=== PATIENT | female | born 1985 | race Caucasian/White ===

== ENCOUNTER → 2018-01-11 | Outpatient (CLI) | payer MEDICAID ==
--- NOTE | 2018-01-11 12:24 | Diagnostic Imaging Report ---
INDICATION: Lump in the left subcostal region. Sonographic interrogation of the area of lump in the subcostal location on the left was performed. No sonographic abnormality is seen. No solid or cystic mass is detected. IMPRESSION: No sonographic abnormality is identified. Dictated by: Dictated on workstation # [id number]
== END ==
LOC: RAD 08:42
PROVIDERS: ATTEND Surgery
DX: R22.2 Localized swelling, mass and lump, trunk (principal)
CPT/HCPCS: 76999

== ENCOUNTER 2018-01-17 00:14 | Emergency (ER) | payer OTHER, MEDICAID ==
[~2018-01-17] VITALS: Ht 165.1 cm; Wt 87.1 kg
[2018-01-17] MEDS ORDERED: LACTATED RINGERS 1,000 ML IV ONE (00:51)
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
[2018-01-17 01:35] LABS: BASOPHILS % (AUTO) 0 % (0-10); EOSINOPHILS # (AUTO) 0.1 10^3/uL (0.0-0.3); EOSINOPHILS % (AUTO) 1 % (0-10); HEMATOCRIT 30 % (35-52); HEMOGLOBIN 10.2 G/DL (11.5-16.0); LYMPHOCYTES # (AUTO) 2.6 X 10^3 (1.0-4.0); LYMPHOCYTES % (AUTO) 18 % (12-44); MEAN CORPUSCULAR HEMOGLOBIN 32 PG (25-34); MEAN CORPUSCULAR HGB CONC 34 G/DL (32-36); MEAN CORPUSCULAR VOLUME 93 FL (80-99); MEAN PLATELET VOLUME 9.5 FL (7.4-10.4); MONOCYTES # (AUTO) 1.2 X 10^3 (0.0-1.0); MONOCYTES % (AUTO) 9 % (0-12); NEUTROPHILS # (AUTO) 10.3 X 10^3 (1.8-7.8); NEUTROPHILS % (AUTO) 72 % (42-75); PLATELET COUNT 250 10^3/uL (130-400); RED BLOOD COUNT 3.24 10^6/uL (4.35-5.85); RED CELL DISTRIBUTION WIDTH 13.9 % (10.0-14.5); WHITE BLOOD COUNT 14.3 10^3/uL (4.3-11.0)
[2018-01-17 01:45] LABS: BILIRUBIN,URINE NEGATIVE (NEGATIVE); CLARITY,URINE CLEAR; COLOR,URINE YELLOW; GLUCOSE, URINE (UA) 1+ (NEGATIVE); KETONES,URINE NEGATIVE (NEGATIVE); LEUKOCYTE ESTERASE ,URINE 1+ (NEGATIVE); NITRITE,URINE NEGATIVE (NEGATIVE); PH,URINE 6 (5-9); PROTEIN,URINE 1+ (NEGATIVE); UROBILINOGEN,URINE 1 MG/DL (NORMAL)
[2018-01-17 01:52] LABS: ANISOCYTOSIS SLIGHT; BAND NEUTROPHILS 0 %; BASOPHILS % (MANUAL) 0 %; EOSINOPHILS % (MANUAL) 1 %; LYMPHOCYTES % (MANUAL) 17 %; MONOCYTES % (MANUAL) 3 %; NEUTROPHILS % (MANUAL) 79 %; POLYCHROMASIA SLIGHT
[2018-01-17 01:55] LABS: BACTERIA,URINE FEW /HPF; CALCIUM OXALATE CRYSTALS,UR FEW /LPF; WBC,URINE RARE /HPF
[2018-01-17 02:06] LABS: ALANINE AMINOTRANSFERASE 8 U/L (0-55); ALBUMIN 2.9 GM/DL (3.2-4.5); ALKALINE PHOSPHATASE 69 U/L (40-136); BILIRUBIN,TOTAL 0.3 MG/DL (0.1-1.0); BUN/CREATININE RATIO 9; CALCIUM 8.2 MG/DL (8.5-10.1); CARBON DIOXIDE 20 MMOL/L (21-32); CHLORIDE 109 MMOL/L (98-107); CREATININE SERUM 0.56 MG/DL (0.60-1.30); GFR ESTIMATED > 60; GLUCOSE 107 MG/DL (70-105); POTASSIUM 3.5 MMOL/L (3.6-5.0); SODIUM 139 MMOL/L (135-145); TOTAL PROTEIN 5.3 GM/DL (6.4-8.2)
[2018-01-17 02:31] VITALS: BP 100/75
--- NOTE | 2018-01-17 06:15 | Diagnostic Imaging Report ---
INDICATION: Pelvic pain Limited OB sonogram There is a single living intrauterine in breech presentation. Placenta is posterior fundal and not low. heart rate was 140 beats per minute. SHANNAN is 7.1 with maximum vertical pocket of 2.9 cm. IMPRESSION: Limited OB sonogram shows a single living intrauterine . Dictated by: Dictated on workstation # [id number]
== END 2018-01-17 02:31 | disposition home or self-care (01) ==
LOC: EDUNIT# 00:14 → ER 00:19
DX: O9A.22 Injury, poisoning and certain other consequences of external causes complicating childbirth (principal); R40.2412 Glasgow coma scale score 13-15, at arrival to emergency department; Z3A.33 33 weeks gestation of pregnancy; V49.40XA Driver injured in collision with unspecified motor vehicles in traffic accident, initial encounter
CPT/HCPCS: 36415; 76815; 80053; 81000; 85007; 85027; 96360

== ENCOUNTER 2018-02-20 03:48 | Inpatient (IN) | payer MEDICAID ==
[~2018-02-20] VITALS: Ht 165.1 cm; Wt 89.0 kg
[2018-02-20] VITALS (56 sets, daily range): BP systolic 97–159; BP diastolic 55–100
[2018-02-20] MEDS ORDERED: D5 LR IV SOLUTION 1,000 ML IV ONE (04:14)
[2018-02-20 04:49] LABS: BASOPHILS % (AUTO) 0 % (0-10); EOSINOPHILS # (AUTO) 0.1 10^3/uL (0.0-0.3); EOSINOPHILS % (AUTO) 1 % (0-10); HEMATOCRIT 33 % (35-52); HEMOGLOBIN 11.5 G/DL (11.5-16.0); LYMPHOCYTES # (AUTO) 2.9 X 10^3 (1.0-4.0); LYMPHOCYTES % (AUTO) 18 % (12-44); MEAN CORPUSCULAR HEMOGLOBIN 31 PG (25-34); MEAN CORPUSCULAR HGB CONC 34 G/DL (32-36); MEAN CORPUSCULAR VOLUME 90 FL (80-99); MEAN PLATELET VOLUME 10.1 FL (7.4-10.4); MONOCYTES # (AUTO) 0.9 X 10^3 (0.0-1.0); MONOCYTES % (AUTO) 6 % (0-12); NEUTROPHILS # (AUTO) 12.1 X 10^3 (1.8-7.8); NEUTROPHILS % (AUTO) 75 % (42-75); PLATELET COUNT 255 10^3/uL (130-400); RED BLOOD COUNT 3.72 10^6/uL (4.35-5.85); RED CELL DISTRIBUTION WIDTH 14.6 % (10.0-14.5); WHITE BLOOD COUNT 16.1 10^3/uL (4.3-11.0)
[2018-02-20] MEDS: D5 LR IV SOLUTION 1,000 ML IV SCH ×2 (04:55→12:05)
[2018-02-20 05:05] LABS: BAND NEUTROPHILS 1 %; BASOPHILS % (MANUAL) 0 %; EOSINOPHILS % (MANUAL) 0 %; LYMPHOCYTES % (MANUAL) 14 %; MONOCYTES % (MANUAL) 4 %; NEUTROPHILS % (MANUAL) 81 %
[2018-02-20 05:06] LABS: ANISOCYTOSIS SLIGHT; POLYCHROMASIA SLIGHT
[2018-02-20] MEDS ORDERED: OXYTOCIN/NORMAL SALINE 500 ML IV SCH ×2 (06:47→15:44)
--- NOTE | 2018-02-20 06:54 | History & Physical ---
History and Physical Date Seen by Provider: Feb 20, 2018 Time Seen by Provider: 06:52 This patient is a 31-year-old white female with a due date of March 06, 2018. She presented with complaint of regular strong contractions for 2 hours. This being complicated by oligohydramnios. Patient denies rupture membranes or bleeding. GBS culture done after 35 weeks gestation was negative. Allergies are none Medications are vitamins Past medical history past surgical history obstetric history family history and social histories are per the antepartum record HEENT exam is normal Neck is supple no lymphadenopathy no thyromegaly Abdomen is gravid soft nontender nondistended Extremities show no clubbing cyanosis. There is no Homans sign. Pelvic exam shows a cervix now almost 2 cm dilated 80 percent effaced vertex presentation intact membranes cervix is mid plane soft. AROM is performed with release of clear fluid Laboratory Tests 02/20/18 04:45 White count is mildly elevated Assessment and plan term at 38 weeks' gestation in labor. Anticipation is for vaginal delivery. Patient is requesting an epidural which will be allowed 38 weeks in labor Allergies and Home Medications Allergies Coded Allergies: No Known Drug Allergies (Unverified , 01/17/18) Patient Home Medication List Home Medication List Reviewed: Yes Clinical Quality Measures DVT/VTE Risk/Contraindication: Risk Factor Score Per Nursin RFS Level Per Nursing on Admit: 1=Low/No VTE PPX MICHELLE MCCARTHY MD Feb 20, 2018 6:54 am
[2018-02-20] MEDS ORDERED: SUFENTA 0.6MCG/ML BUPIVA 0.125 100 ML ONE (07:15)
[2018-02-20] MEDS ORDERED: BUPIVACAINE 0.25% 30 ML (SENSORCAINE) VIAL ONE (07:19)
[2018-02-20] MEDS ORDERED: fentaNYL INJECTION 100 MCG/2 ML AMP ONE (07:19)
[2018-02-20] MEDS ORDERED: LACTATED RINGERS 1,000 ML IV ONE ×2 (07:45→08:09)
[2018-02-20] MEDS ORDERED: EPIDURAL (SUFENTA 0.6MCG/ML BUPIVA 0.125%) 100 ML BAG EPI SCH (08:15)
[2018-02-20] MEDS ORDERED: CATHETER FLUSH 10 ML SYR IV PRN (08:15)
[2018-02-20] MEDS ORDERED: NALOXONE 0.4 MG/ML 1 ML (NARCAN) VIAL IV PRN (08:15)
[2018-02-20] MEDS ORDERED: TETANUS,DIPTH,PERTUSS P/F (BOOSTRIX) 0.5 ML VIAL IM ONE (15:45)
[2018-02-20] MEDS ORDERED: ONDANSETRON 4 MG/2 ML (SDV) Z0FRAN IVP PRN (15:45)
[2018-02-20] MEDS ORDERED: MEASLES,MUMPS,RUBELLA 1 EA INJ SC ONE (15:45)
[2018-02-20] MEDS ORDERED: BENZOCAINE/MENTHOL (DERMOPLAST) 56 ML CAN TP PRN (15:45)
--- NOTE | 2018-02-20 16:16 | OPERATIVE REPORT ---
DATE OF SERVICE: 02/20/2018 DELIVERY NOTE02/21/2018 The patient delivered by term spontaneous vaginal delivery a viable male infant with Apgars of 8 and 9 at 1 and 5 minutes, respectively. Weight of 7 pounds 14 ounces, time of 1446 and a cord blood pH that is pending. The was bulb suctioned on delivery of the head and again on completion of delivery. Umbilical cord was doubly clamped. The father cut the cord and baby was passed to mom's abdomen. The baby was quickly pinked, moved all extremities, had excellent tone and reflexes and a lusty cry. The placenta delivered promptly spontaneously Jaramillo. It was normal with a 3-vessel cord. The cervix, vagina, rectum and perineum were examined and found intact. Estimated blood loss for delivery was around 200 mL. The patient tolerated the delivery well and remained in the LDR. The baby remained with the mom. Job ID: [id number] DocumentID: [id number] Dictated Date: 02/20/2018 15:00:23 Sales Agent Business Services Date: 02/20/2018 16:16:07 Dictated By: MICHELLE MCCARTHY MD
[2018-02-20] MEDS: KETOROLAC 30 MG/ML VIAL IV SCH (18:45)
[2018-02-20] MEDS: DOCUSATE SODIUM 100 MG (COLACE) CAP PO SCH (22:02)
[2018-02-21] MEDS: KETOROLAC 30 MG/ML VIAL IV SCH ×2 (00:39→22:39)
[2018-02-21 00:47] VITALS: BP 122/79
[2018-02-21] MEDS: oxyCODONE/APAP 5/325MG (PERCOCET 5) TABLET PO PRN ×3 (03:09→18:29)
[2018-02-21] MEDS ORDERED: WITCH HAZEL(TUCKS) 40 EA JAR TOP PRN (04:00)
--- NOTE | 2018-02-21 07:30 | Progress Note-Standard ---
Standard Progress Note Progress Notes/Assess & Plan Date Seen by Provider: Feb 21, 2018 Time Seen by Provider: 07:29 Progress/Assessment & Plan This patient is without complaint. She is ambulating, voiding, tolerating oral intake well has good pain control. She does feel a bit sore but that is normal. Patient denies headache, denies shortness breath, denies nausea vomiting, and denies chest pain. Vital Signs 02/21/18 00:47 Temp 97.8 Pulse 101 Resp 18 B/P (MAP) 122/79 (93) Pulse Ox 98 O2 Delivery Room Air Vital signs are stable. Patient is afebrile. Fundus is firm below the umbilicus and nontender. Extremities show no clubbing or cyanosis. There is no Homans sign. There is some pretibial pitting edema that is normal. Assessment and plan day number 1 doing well. Plan is for routine convalescence care with discharge at patient's request after 24 hours convalescence Final Diagnosis Term spontaneous vaginal delivery MICHELLE MCCARTHY MD Feb 21, 2018 7:30 am
[2018-02-21] MEDS ORDERED: OXYC-471 PO (07:33)
[2018-02-21] MEDS ORDERED: DOCU100C37 PO (07:33)
[2018-02-21] MEDS ORDERED: IBUP-1780 PO (07:33)
--- NOTE | 2018-02-21 07:33 | Discharge Instructions ---
Discharge Instructions Discharge Medications New, Converted or Re-Newed RX: RX on Chart Patient Instructions Patient Instructions: As directed Return to The Hospital For: As directed Activity & Diet Discharge Diet: No Restrictions Activity as Tolerated: No Orders-Post D/C & Referrals Follow Up Appt: Call to make follow up appt. for patient in 4 weeks. Activity Per routine post vaginal delivery instructions. Diet as tolerated Patient may shower or tub bathe as desired. MICHELLE MCCARTHY MD Feb 21, 2018 7:33 am
[2018-02-21] MEDS ORDERED: IBUPROFEN 800 MG (MOTRIN) TAB PO ONE (08:16)
[2018-02-21] MEDS: IBUPROFEN 800 MG (MOTRIN) TAB PO SCH ×3 (08:20→21:06)
[2018-02-21] MEDS: DOCUSATE SODIUM 100 MG (COLACE) CAP PO SCH ×2 (08:20→21:06)
[2018-02-21 08:23] VITALS: BP 116/84
--- NOTE | 2018-02-21 08:50 | Anesthesia-Regional Post-Op ---
Regional Patient Condition Mental Status: Alert, Oriented x3 Circulation: Same as Pre-Op Headache: Absent Sensation: Full Recovery Motor Block: Absent Post Op Complications Complications None Follow Up Care/Instructions Patient Instructions None needed. Anesthesia/Patient Condition Patient is doing well, no complaints, stable vital signs, no apparent adverse anesthesia problems. No complications reported per nursing. D/C home per [facility] Criteria: No BROOKE GARCIA CRNA Feb 21, 2018 08:50
[2018-02-21 12:40] VITALS: BP 126/81
[2018-02-21 18:30] VITALS: BP 118/75
[2018-02-21 21:06] VITALS: BP 118/77
[2018-02-22] MEDS: KETOROLAC 30 MG/ML VIAL IV SCH (04:20)
[2018-02-22] MEDS: IBUPROFEN 800 MG (MOTRIN) TAB PO SCH ×2 (04:25→10:45)
[2018-02-22 04:26] VITALS: BP 122/79
[2018-02-22] MEDS: oxyCODONE/APAP 5/325MG (PERCOCET 5) TABLET PO PRN (04:26)
--- NOTE | 2018-02-22 07:55 | Progress Note-Standard ---
Standard Progress Note Progress Notes/Assess & Plan Date Seen by Provider: Feb 22, 2018 Time Seen by Provider: 07:53 Progress/Assessment & Plan This patient is without complaint. She is ambulating, voiding, tolerating oral intake well has good pain control. She does feel a bit sore but that is normal. Patient denies headache, denies shortness breath, denies nausea vomiting, and denies chest pain. Vital Signs 02/21/18 00:47 Temp 97.8 Pulse 101 Resp 18 B/P (MAP) 122/79 (93) Pulse Ox 98 O2 Delivery Room Air Vital signs are stable. Patient is afebrile. Fundus is firm below the umbilicus and nontender. Extremities show no clubbing or cyanosis. There is no Homans sign. There is some pretibial pitting edema that is normal. Assessment and plan day number 1 doing well. Plan is for routine convalescence care with discharge at patient's request after 24 hours convalescence February 22, 2018 Patient without complaint. She is ablating, voiding, tolerating oral intake well, has good pain control and is requesting discharge home. Vital Signs Date Time Temp Pulse Resp B/P (MAP) Pulse Ox O2 Delivery O2 Flow Rate FiO2 02/22/18 04:26 97.1 84 18 122/79 (93) 98 Room Air 02/21/18 21:06 97.4 96 18 118/77 (91) 98 Room Air 02/21/18 18:30 97.8 95 18 118/75 (89) 98 Room Air 02/21/18 12:40 98.0 101 20 126/81 (96) 98 Room Air 02/21/18 08:23 97.5 85 18 116/84 (95) 98 Room Air Vital signs are stable. Patient is afebrile. Fundus is firm below the umbilicus and nontender. Extreme show clubbing cyanosis. There is no Homans sign. Assessment and plan day number 2 status post term spontaneous vaginal delivery doing well. Plan is for discharge home with follow-up in clinic Final Diagnosis Term spontaneous vaginal delivery MICHELLE MCCARTHY MD Feb 22, 2018 7:55 am
[2018-02-22 10:15] VITALS: BP 119/74
[2018-02-22] MEDS: DOCUSATE SODIUM 100 MG (COLACE) CAP PO SCH (10:46)
== END 2018-02-22 13:50 | disposition home or self-care (01) | DRG 775 ==
LOC: WSo 03:48 → LDRP 03:48 → WSo 06:04 → LDRP 06:04
PROVIDERS: ADMIT Obstetrics & Gynecology; ATTEND Obstetrics & Gynecology
PROC: 10E0XZZ Delivery of Products of Conception, External Approach (ICD-10-PCS; principal; 2018-02-20)
DX: O41.03X0 Oligohydramnios, third trimester, not applicable or unspecified (principal); Z37.0 Single live birth; Z3A.38 38 weeks gestation of pregnancy
CPT/HCPCS: 36415; 85007; 85027; 86850; 86900; 86901; 88307; 99212

== ENCOUNTER → 2018-09-05 | Outpatient (CLI) | payer MEDICAID ==
[~2018-09-05] MED LIST: DOCU100C37 PO; IBUP-1780 PO; OXYC-471 PO
--- NOTE | 2018-09-05 10:28 | Diagnostic Imaging Report ---
PROCEDURE: US Thyroid. TECHNIQUE: Multiple real-time grayscale images were obtained of the thyroid in various projections. INDICATION: Hyperthyroidism and throat discomfort. FINDINGS: Right lobe of the thyroid measures 4.8 x 1.4 x 1.5 cm and the left lobe measures 4.4 x 1.3 x 1.3 cm. Isthmus is 3 mm in thickness. Bilateral thyroid nodules are present. Largest nodule on the right is in the mid upper portion measuring approximately 1 cm in size. Nodule on the left near the isthmus measures approximately 6 mm x 5 mm. No microcalcifications are seen. No dominant mass is identified. IMPRESSION: Bilateral thyroid nodules. No dominant thyroid mass is identified. Followup ultrasound in six months could be performed to confirm stability. Dictated by: Dictated on workstation # [id number]
== END ==
LOC: RAD 09:39
PROVIDERS: ATTEND Nurse Practitioner Primary Care
DX: E04.2 Nontoxic multinodular goiter (principal); E05.90 Thyrotoxicosis, unspecified without thyrotoxic crisis or storm
CPT/HCPCS: 76536

== ENCOUNTER → 2019-03-06 | Outpatient (CLI) | payer MEDICAID ==
--- NOTE | 2019-03-07 07:36 | Diagnostic Imaging Report ---
PROCEDURE: US Thyroid. TECHNIQUE: Multiple real-time grayscale images were obtained of the thyroid in various projections. INDICATION: Graves' disease. FINDINGS: Right lobe of thyroid measures 4.7 x 1.9 x 1.7 cm. Left lobe measures 4.1 x 1.5 x 1.2 cm. There are small bilateral thyroid nodules. Largest nodule on the right measure 0.7 cm. Largest nodule in the left also measures 0.7 cm. Isthmus measured 0.3 cm. IMPRESSION: Small benign-appearing bilateral thyroid nodules likely multinodular goiter otherwise unremarkable. Dictated by: Dictated on workstation # [id number]
== END ==
LOC: RAD 18:35
PROVIDERS: ATTEND Internal Medicine Endocrinology, Diabetes & Metabolism
DX: E05.20 Thyrotoxicosis with toxic multinodular goiter without thyrotoxic crisis or storm (principal)
CPT/HCPCS: 76536

== ENCOUNTER → 2019-04-04 | Outpatient (CLI) | payer MEDICAID | LOC: RAD 16:10 | PROVIDERS: ATTEND Nurse Practitioner Primary Care | DX: E04.1 Nontoxic single thyroid nodule (principal); Z53.8 Procedure and treatment not carried out for other reasons ==

== ENCOUNTER → 2019-07-23 | Outpatient (CLI) | payer MEDICAID | LOC: CARD 12:00 | PROVIDERS: ATTEND Internal Medicine Endocrinology, Diabetes & Metabolism | DX: E05.00 Thyrotoxicosis with diffuse goiter without thyrotoxic crisis or storm (principal) | CPT/HCPCS: 93005 ==

== ENCOUNTER → 2019-08-08 | Outpatient (CLI) | payer MEDICAID ==
[~2019-08-08] MED LIST changes: +CATHETER FLUSH 10 ML SYR IV PRN; +HOLD METFORMIN - RECEIVED CONTRAST 20 ML VIAL IV SCH; +IOHEXOL 350 MG/ML 100 ML (OMNIPAQUE 350) VIAL IV ONE; +NS 100 ML (IVPB) BAG IV ONE
--- NOTE | 2019-08-08 10:13 | Diagnostic Imaging Report ---
PROCEDURE: CT abdomen with and without contrast. TECHNIQUE: Multiple contiguous axial CT images of the abdomen were obtained prior to and after intravenous administration of iodinated contrast. Auto Exposure Controls were utilized during the CT exam to meet ALARA standards for radiation dose reduction. Date: August 08, 2019. Indication: 33-year-old female, left upper quadrant abdominal pain and possible mass. Comparison: None. Findings: The visualized portions of the lung bases are clear. The heart is not enlarged. There is no pericardial effusion. The liver is normal in size and contour. There is no identified liver lesion. The main, right, and left portal veins are patent. The gallbladder is unremarkable. There is no intrahepatic or extrahepatic bile duct dilation. The main pancreatic duct is not abnormally dilated. Unremarkable appearance of the pancreatic parenchyma. The spleen is not enlarged. The adrenal glands are unremarkable. Unremarkable appearance of the renal parenchyma. The urinary collecting systems are not distended in their visualized portions. There is no visualized renal or ureteral stone. The visualized segments of the intestinal tract are not distended. There is no free intraperitoneal air, drainable fluid collection, or free fluid in the abdomen. There is no identified abnormally enlarged lymph node in the abdomen which meets CT size criteria for adenopathy. There is no identified hernia. There is no identified soft tissue mass. There is no identified acute bony abnormality. Impression: 1. No identified acute abnormality in the abdomen. 2. No identified mass. Dictated by: Dictated on workstation # [id number]
== END ==
LOC: RAD 08:53
PROVIDERS: ATTEND Internal Medicine Endocrinology, Diabetes & Metabolism
DX: R19.02 Left upper quadrant abdominal swelling, mass and lump (principal)
CPT/HCPCS: 74170

== ENCOUNTER 2019-09-08 11:17 | Outpatient (CLI) | payer MEDICAID ==
[~2019-09-08 11:17] MED LIST changes: -CATHETER FLUSH 10 ML SYR IV PRN; -HOLD METFORMIN - RECEIVED CONTRAST 20 ML VIAL IV SCH; -IOHEXOL 350 MG/ML 100 ML (OMNIPAQUE 350) VIAL IV ONE; -NS 100 ML (IVPB) BAG IV ONE
== END 2019-09-08 11:45 | disposition home or self-care (01) ==
LOC: SLEEP 11:17
PROVIDERS: ATTEND Internal Medicine Endocrinology, Diabetes & Metabolism
DX: G47.33 Obstructive sleep apnea (adult) (pediatric) (principal); I49.9 Cardiac arrhythmia, unspecified

== ENCOUNTER → 2020-02-23 | Outpatient (CLI) | payer MEDICAID ==
--- NOTE | 2020-02-23 13:53 | Diagnostic Imaging Report ---
CLINICAL INDICATION: Patient with history of Graves' disease. Patient is status post thyroidectomy. EXAM: Ultrasound of the neck soft tissue/thyroid bed. COMPARISON: Ultrasound of thyroid gland dated 03/06/2019. FINDINGS AND IMPRESSION: 1: There is a 6 mm x 7 mm x 11 mm hypoechoic area seen anterior to the right thyroid bed region which demonstrates a fatty hilum and most likely represents a benign-appearing lymph node. There is no other significant abnormality seen. 2: There appears to be small amount of possible residual thyroid tissue in the left thyroid bed region. Otherwise, there is no measurable mass seen. 3: Otherwise, the remainder of this exam is unremarkable. Dictated by: Dictated on workstation # [id number]
== END ==
LOC: RAD 10:38
PROVIDERS: ATTEND Internal Medicine Endocrinology, Diabetes & Metabolism
DX: E04.1 Nontoxic single thyroid nodule (principal); Z86.39 Personal history of other endocrine, nutritional and metabolic disease; Z90.89 Acquired absence of other organs
CPT/HCPCS: 76536

== ENCOUNTER → 2020-08-04 | Outpatient (CLI) | payer MEDICAID ==
[~2020-08-04] MED LIST changes: +CATHETER FLUSH 10 ML SYR IV PRN; +HOLD METFORMIN - RECEIVED CONTRAST 20 ML VIAL IV SCH; +IOHEXOL 350 MG/ML 100 ML (OMNIPAQUE 350) VIAL IV ONE; +NS 100 ML (IVPB) BAG IV ONE
--- NOTE | 2020-08-04 15:20 | Diagnostic Imaging Report ---
PROCEDURE: CT abdomen with and without contrast. TECHNIQUE: Multiple contiguous axial CT images of the abdomen were obtained prior to and after intravenous administration of iodinated contrast. Auto Exposure Controls were utilized during the CT exam to meet ALARA standards for radiation dose reduction. INDICATION: Palpable abnormality in left upper quadrant. COMPARISON: Study of 08/08/2019. FINDINGS: Pre and post contrast enhanced chest CT was performed. A surface marker was placed at the site of clinical complaint. Deep to the radiopaque marker, no mass, fluid collection or soft tissue asymmetry is found. The patient's lung bases are clear. The liver, gallbladder, bile ducts, spleen, adrenals and pancreas appear unremarkable. Unobstructed kidneys, nonacute. The abdominal small and large bowel unobstructed. No ascites, abscess, hematoma or acute fluid collection. IMPRESSION: 1. Stable unremarkable CT abdomen. 2. In particular, no abnormality deep to the site of palpable fullness in the high left upper quadrant was seen. Given the lack of CT abnormality, it is favored that there is an underlying lipoma blending imperceptibly with the adjacent subcutaneous fat. Dictated by: Dictated on workstation # [id number]
== END ==
LOC: RAD 14:15
PROVIDERS: ATTEND Nurse Practitioner Family
DX: R19.02 Left upper quadrant abdominal swelling, mass and lump (principal)
CPT/HCPCS: 74170

== ENCOUNTER → 2020-09-02 | Outpatient (CLI) | payer MEDICAID ==
[~2020-09-02] MED LIST changes: -CATHETER FLUSH 10 ML SYR IV PRN; +GADOBUTROL 10 MMOL/10 ML (GADAVIST) VIAL IV ONE; -HOLD METFORMIN - RECEIVED CONTRAST 20 ML VIAL IV SCH; -IOHEXOL 350 MG/ML 100 ML (OMNIPAQUE 350) VIAL IV ONE; -NS 100 ML (IVPB) BAG IV ONE
--- NOTE | 2020-09-03 08:39 | Diagnostic Imaging Report ---
PROCEDURE: MR imaging abdomen with and without contrast. TECHNIQUE: Multiplanar, multisequence MR imaging of the abdomen was performed with and without contrast. INDICATION: Left upper quadrant mass. There are no prior MRI examinations available for comparison. The CT abdomen exam performed on 08/08/2019 failed to show any sign of a mass in the area of the patient's palpable abnormality in the left upper quadrant. The subsequent CT abdomen exam of 08/04/2020 was also unremarkable for a mass lesion. For this study a marker was placed over the area of concern in the left upper quadrant. The subcutaneous fat in this area does seem asymmetrically more prominent than on the right. There is still no discrete solid or cystic mass evident in the subcutaneous fat or within the abdominal cavity. There is no abnormal enhancement in this area on the postcontrast series either. The abdomen is soft where visualized and is unremarkable. The liver, spleen, pancreas, adrenals, gallbladder, kidneys, aorta and inferior vena cava show no sign of an acute abnormality. The stomach is not well-distended and difficult to assess. The lung bases seem clear. There is no abnormal signal arising from the osseous structures to suggest bone edema or a destructive lesion. IMPRESSION: 1. There is still no discrete mass in the left upper quadrant near the patient's palpable abnormality. If clinical concern regarding an underlying palpable abnormality present in this area persists, then a surgical consult should be considered. 2. There is no acute abnormality of the abdomen. Dictated by: Dictated on workstation # [id number]
== END ==
LOC: RAD 14:45
PROVIDERS: ATTEND Nurse Practitioner Family
DX: R19.02 Left upper quadrant abdominal swelling, mass and lump (principal)
CPT/HCPCS: 74183